=== PATIENT | male | born 1975 | race Hispanic/Latino ===

== ENCOUNTER 2025-05-16 17:25 | Emergency (ER) | payer OTHER ==
[~2025-05-16] VITALS: Ht 157.5 cm; Wt 86.2 kg
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
[2025-05-16] MEDS ORDERED: IBUP-2077 PO (18:19)
[2025-05-16 18:25] VITALS: BP 142/81; PULSE 80; RESP 20; TEMP 98.4; O2SAT 96
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
== END 2025-05-16 18:26 | disposition home or self-care (01) ==
LOC: EDH 17:25
DX: S46.911A Strain of unspecified muscle, fascia and tendon at shoulder and upper arm level, right arm, initial encounter (principal); Z90.89 Acquired absence of other organs; V89.2XXA Person injured in unspecified motor-vehicle accident, traffic, initial encounter; Y93.89 Activity, other specified; Y92.89 Other specified places as the place of occurrence of the external cause; Y99.8 Other external cause status
CPT/HCPCS: 73030; 99283